=== PATIENT | male | born 1965 ===

== ENCOUNTER 2020-07-30 15:21 | Day surgery (SDC) | payer OTHER ==
[2020-07-30 15:44] VITALS: BP 106/73; PULSE 95; TEMP 97.7
[2020-07-30] MEDS ORDERED: CEFTRIAXONE 2 GM in DEXTROSE 5%-WATER 100 ML IVPB ONE (16:15)
== END 2020-07-30 16:52 | disposition home or self-care (01) ==
LOC: FINFUSION 15:21 → FM/S 15:27 → FINFUSION 16:52
PROVIDERS: ATTEND Internal Medicine
DX: N39.0 Urinary tract infection, site not specified (principal)
CPT/HCPCS: 96365